=== PATIENT | female | born 1970 | race Caucasian/White ===

== ENCOUNTER 2019-03-27 08:46 | Day surgery (SDC) | payer BC ==
[~2019-03-27 08:46] MED LIST: Lactated Ringers 1,000 ML IV SCH; Lidocaine 1%/Sod Bicarbonate in NS 8.4% 1 ML Syringe IDERM PRN; Sodium Chloride 0.9% 10 ML Syringe FLUSH PRN
[2019-03-27] MEDS ORDERED: Lactated Ringers 1,000 ML ONE ×2 (10:00→12:09)
[2019-03-27] MEDS ORDERED: Ketorolac 30 MG/ML SDV ONE (10:00)
[2019-03-27] MEDS ORDERED: ceFAZolin 1 GM Vial ONE (10:00)
[2019-03-27] MEDS ORDERED: Ondansetron 4 MG/2 ML SDV ONE (10:00)
[2019-03-27] MEDS ORDERED: Dexamethasone 4 MG/ML SDV ONE (10:00)
[2019-03-27] MEDS ORDERED: Propofol 200 MG/20 ML SDV ONE (10:01)
[2019-03-27] MEDS ORDERED: Lidocaine 1% 4 ML ONE (10:01)
[2019-03-27] MEDS ORDERED: Midazolam 1 MG/ML 2 ML SDV ONE (10:01)
[2019-03-27] MEDS ORDERED: fentaNYL 100 MCG/2 ML SDV ONE (10:01)
[2019-03-27] MEDS ORDERED: Famotidine 20 MG/2 ML SDV ONE (10:25)
[2019-03-27] MEDS ORDERED: Ibuprofen 600 MG Tab PO PRN (11:45)
[2019-03-27] MEDS ORDERED: Ondansetron 4 MG/2 ML SDV IVPUSH PRN (11:45)
--- NOTE | 2019-03-27 11:51 | PCM.OPNOTE ---
- General Post-Op/Procedure Note Date of Surgery/Procedure: 03/27/19 Operative Procedure(s): Hysteroscopy, D&C, removal of endometrial polyps Findings: Patient noted to have a polyp which was pedunculated and coming off the right side of the uterus. Posteriorly to the left of midline in the fundal area of the uterus there was another protuberance most probably consistent with small uterine fibroid. It was broad-based. Uterus sounded to 9.5 cm. No adnexal abnormalities were noted on bimanual exam. Pre Op Diagnosis: 1. Postmenopausal uterine bleeding Post-Op Diagnosis: Same with uterine polyps and probable uterine fibroid Anesthesia Technique: General LMA Primary Surgeon: Nathanael Dwyer Pathology: Endometrial curettings including uterine endometrial polyp Fluid Replacement, Intraop: 1,500 EBL in mLs: 5 Complications: None Condition: Good Free Text/Narrative:: Surgery duration: 10 minutes Procedure: The patient is taking the operative placed in a supine position on the operating table. She received 2 g of Ancef preoperatively for infection prophylaxis and had sequential compression stockings in place for DVT prophylaxis. Patient was given general anesthesia with LMA placed for ventilation. She is placed in a dorsal lithotomy position and prepped and draped in usual fashion. An exam under anesthesia was performed. Findings as described above. A weighted speculum was placed in the vagina. Cervix is visualized. It was grasped anteriorly with a single-tooth tenaculum. Uterus was then sounded to a depth of 9-1/2 cm. The cervix was dilated to entrance of a 5 mm 30 rigid hysteroscope. This was placed without problem and normal saline was used as a distending medium. Tendometriality was visualized. Findings as described above.Notably a right uterine sidewall polyp and a posterior left-sided protuberance most probably consistent with a submucosal fibroid. Decision was made to proceed with polypectomy. Polyp forceps was introduced and polyps were removed. After this is performed a D&C was performed. Moderate amount tissue was obtained. Minimal bleeding was encountered. Hysteroscope was then placed back into the endometrial cavity. Blood was flushed out and the findings were consistent relatively normal-appearing endometrial cavity. the posterior wall uterine fibroid. Structure was not removed broad-based. At this point the scope was removed. The vagina was cleared of old blood, the cervix was released and the weighted speculum was removed. Patient was returned to supine position and awakened from general anesthesia. She tolerated the procedure well and operating room in good condition.
--- NOTE | 2019-03-27 11:55 | PCM.POSTAN ---
POST ANESTHESIA ASSESSMENT - MENTAL STATUS Mental Status: Alert, Oriented - VITAL SIGNS Pulse Rate: 80 SaO2: 96 Resp Rate: 14 Blood Pressure: 126/75 Temperature: 36.7 C - RESPIRATORY Respiratory Status: Respiratory Rate WNL, Airway Patent, O2 Saturation Stable, Supplemental Oxygen - CARDIOVASCULAR CV Status: Pulse Rate WNL, Blood Pressure Stable - GASTROINTESTINAL GI Status: No Symptoms - PAIN Pain Score: 0 - POST OP HYDRATION Hydration Status: Adequate & Stable
--- NOTE | 2019-03-27 12:01 | PCM.PREANE ---
Preanesthetic Assessment - Anesthesia/Transfusion/Family Hx Anesthesia History: No Prior Anesthesia Family History of Anesthesia Reaction: No - Review of Systems General: No Symptoms Pulmonary: No Symptoms Cardiovascular: No Symptoms Gastrointestinal: Other (GERD on Zantac) Neurological: Headache (Migraines), Pre-Existing Deficit (Back pain, seeing chropractic care, numbness and tingling in hands right more than left side. ) Other: Reports: None (Obesity BMI 38) - Physical Assessment NPO Status Date: 03/26/19 NPO Status Time: 23:00 Pulse: 80 O2 Sat by Pulse Oximetry: 96 Respiratory Rate: 14 Blood Pressure: 126/75 Temperature: 36.7 C Vital Signs: Last Vital Signs Temp 36.7 C 03/27/19 11:55 Pulse 80 03/27/19 11:55 Resp 14 03/27/19 11:55 BP 126/75 03/27/19 11:55 Pulse Ox 96 03/27/19 11:55 Height: 1.68 m Weight: 108.409 kg ASA Class: 2 Mental Status: Alert & Oriented x3 Airway Class: Mallampati = 2 Dentition: Reports: Normal Dentition Thyro-Mental Finger Breadths: 2 Mouth Opening Finger Breadths: 3 ROM/Head Extension: Full Lungs: Clear to Auscultation, Normal Respiratory Effort Cardiovascular: Regular Rate, Regular Rhythm - Lab Values: Laboratory Last Values WBC 6.75 K/mm3 (3.98-10.04) 03/26/19 16:00 RBC 4.93 M/mm3 (3.98-5.22) 03/26/19 16:00 Hgb 13.1 gm/L (11.2-15.7) 03/26/19 16:00 Hct 40.8 % (34.1-44.9) 03/26/19 16:00 MCV 82.8 fl (79.4-94.8) 03/26/19 16:00 MCH 26.6 pg (25.6-32.2) 03/26/19 16:00 MCHC 32.1 g/dl (32.2-35.5) L 03/26/19 16:00 RDW Std Deviation 42.0 fL (36.4-46.3) 03/26/19 16:00 Plt Count 232 K/mm3 (182-369) 03/26/19 16:00 MPV 10.8 fl (9.4-12.3) 03/26/19 16:00 Neut % (Auto) 48.5 % (34.0-71.1) 03/26/19 16:00 Lymph % (Auto) 36.7 % (19.3-51.7) 03/26/19 16:00 Kay % (Auto) 9.9 % (4.7-12.5) 03/26/19 16:00 Eos % (Auto) 3.7 (0.7-5.8) 03/26/19 16:00 Baso % (Auto) 0.9 % (0.1-1.2) 03/26/19 16:00 Neut # (Auto) 3.27 K/mm3 (1.56-6.13) 03/26/19 16:00 Lymph # (Auto) 2.48 K/mm3 (1.18-3.74) 03/26/19 16:00 Kay # (Auto) 0.67 K/mm3 (0.24-0.36) H 03/26/19 16:00 Eos # (Auto) 0.25 K/mm3 (0.04-0.36) 03/26/19 16:00 Baso # (Auto) 0.06 K/mm3 (0.01-0.08) 03/26/19 16:00 Urine Color Yellow (Yellow) 03/26/19 16:00 Urine Appearance Clear (Clear) 03/26/19 16:00 Urine pH 6.0 (5.0-8.0) 03/26/19 16:00 Ur Specific [place] > or = 1.030 (1.005-1.030) 03/26/19 16:00 Urine Protein Negative (Negative) 03/26/19 16:00 Urine Glucose (UA) Negative (Negative) 03/26/19 16:00 Urine Ketones Negative (Negative) 03/26/19 16:00 Urine Occult Blood Negative (Negative) 03/26/19 16:00 Urine Nitrite Negative (Negative) 03/26/19 16:00 Urine Bilirubin Negative (Negative) 03/26/19 16:00 Urine Urobilinogen 0.2 (0.2-1.0) 03/26/19 16:00 Ur Leukocyte Esterase Negative (Negative) 03/26/19 16:00 Urine HCG, Qual Negative (NEGATIVE) 03/26/19 16:00 - Allergies Allergies/Adverse Reactions: Allergies Allergy/AdvReac Type Severity Reaction Status Date / Time animal dander Allergy Other Verified 03/26/19 14:40 Penicillins Allergy Cannot Verified 03/26/19 14:40 Remember dust mites Allergy Other Uncoded 03/26/19 14:40 pollen Allergy Other Uncoded 03/26/19 14:40 - Anesthesia Plan Pre-Op Medication Ordered: Anxiolytic - Acknowledgements Anesthesia Type Planned: General Anesthesia Pt an Appropriate Candidate for the Planned Anesthesia: Yes Alternatives and Risks of Anesthesia Discussed w Pt/Guardian: Yes Pt/Guardian Understands and Agrees with Anesthesia Plan: Yes PreAnesthesia Questionnaire HEENT History: Reports: Allergic Rhinitis Cardiovascular History: Reports: None Respiratory History: Reports: None Gastrointestinal History: Reports: None Genitourinary History: Reports: None 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 (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) Other OB/BYN History: Irregular menstrual bleeding, menorrhagia, Musculoskeletal History: Reports: None Neurological History: Reports: Migraines Psychiatric History: Reports: None Endocrine/Metabolic History: Reports: None Hematologic History: Reports: None Immunologic History: Reports: None Oncologic (Cancer) History: Reports: None Dermatologic History: Reports: None - Past Surgical History Head Surgeries/Procedures: Reports: None HEENT Surgical History: Reports: None Cardiovascular Surgical History: Reports: None Respiratory Surgical History: Reports: None GI Surgical History: Reports: None Female Surgical History: Reports: None Endocrine Surgical History: Reports: None Neurological Surgical History: Reports: None Musculoskeletal Surgical History: Reports: None Oncologic Surgical History: Reports: None Dermatological Surgical History: Reports: None - SUBSTANCE USE Smoking Status *Q: Never Smoker Second Hand Smoke Exposure: No Recreational Drug Use History: No - HOME MEDS Home Medications: Home Meds Calcium Carbonate [Calcium] 500 mg PO DAILY 03/26/19 [History] Cetirizine [ZyrTEC] 10 mg PO DAILY 03/26/19 [History] L.acidoph,Paracasei, B.lactis [Probiotic] 1 cap PO DAILY 03/26/19 [History] Montelukast Sodium [Singulair] 10 mg PO DAILY PRN 03/26/19 [History] [place]-3/DHA/Epa/Fish Oil [[place]-3 Fish Oil 1,000 MG Sfgl] 1,000 mg PO DAILY 05/09 [History] Ranitidine [Zantac] 150 mg PO DAILY 03/26/19 [History] SUMAtriptan [Imitrex] 50 mg PO ASDIRECTED PRN 03/26/19 [History] Ibuprofen [Motrin] 600 mg PO Q4H PRN tablet 03/27/19 [Rx] - CURRENT (IN HOUSE) MEDS Current Meds: Current Medications Lactated Ringer's (Ringers, Lactated) 1,000 mls @ 125 mls/hr IV ASDIRECTED HENRY Stop: 03/27/19 23:00 Last Admin: 03/27/19 09:15 Dose: 125 mls/hr Ibuprofen (Motrin) 600 mg PO Q4H PRN PRN Reason: Mild pain or fever Stop: 03/27/19 18:00 Lidocaine/Sodium Bicarbonate (Buffered Lidocaine 1% In Ns 8.4%) 0.25 ml IDERM ONETIME PRN PRN Reason: Prior to IV Start Stop: 03/27/19 18:00 Last Admin: 03/27/19 09:15 Dose: 0.25 ml Ondansetron HCl (Zofran) 4 mg IVPUSH Q4H PRN PRN Reason: Nausea Stop: 03/27/19 18:00 Sodium Chloride (Saline Flush) 10 ml FLUSH ASDIRECTED PRN PRN Reason: Keep Vein Open Stop: 03/27/19 18:00 Discontinued Medications Cefazolin Sodium (Ancef) Confirm Administered Dose 2 gm .ROUTE .STK-MED ONE Stop: 03/27/19 10:01 Dexamethasone (Dexamethasone) Confirm Administered Dose 4 mg .ROUTE .STK-MED ONE Stop: 03/27/19 10:01 Famotidine (Pepcid) Confirm Administered Dose 20 mg .ROUTE .STK-MED ONE Stop: 03/27/19 10:26 Fentanyl (Sublimaze) Confirm Administered Dose 100 mcg .ROUTE .STK-MED ONE Stop: 03/27/19 10:02 Lactated Ringer's (Ringers, Lactated) Confirm Administered Dose 1,000 mls @ as directed .ROUTE .STK-MED ONE Stop: 03/27/19 10:01 Lidocaine HCl (Xylocaine-Mpf 1%) Confirm Administered Dose 4 mls @ as directed .ROUTE .STK-MED ONE Stop: 03/27/19 10:02 Ketorolac Tromethamine (Toradol) Confirm Administered Dose 30 mg .ROUTE .[facility]- MED ONE Stop: 03/27/19 10:01 Midazolam HCl (Versed 1 Mg/Ml) Confirm Administered Dose 2 mg .ROUTE .[facility]-MED ONE Stop: 03/27/19 10:02 Ondansetron HCl (Zofran) Confirm Administered Dose 4 mg .ROUTE .[facility]-MED ONE Stop: 03/27/19 10:01 Propofol (Diprivan 20 Ml) Confirm Administered Dose 400 mg .ROUTE .ST-MED ONE Stop: 03/27/19 10:02
--- NOTE | 2019-03-27 13:13 | PCM48HPAN ---
Post Anesthesia Note - EVALUATION WITHIN 48HRS OF ANESTHETIC Vital Signs in Normal Range: Yes Patient Participated in Evaluation: Yes Respiratory Function Stable: Yes Airway Patent: Yes Cardiovascular Function Stable: Yes Hydration Status Stable: Yes Pain Control Satisfactory: Yes Nausea and Vomiting Control Satisfactory: Yes Mental Status Recovered: Yes
== END 2019-03-27 13:37 | disposition home or self-care (01) ==
LOC: JD.SDS 08:46
PROVIDERS: ATTEND Obstetrics & Gynecology
DX: N84.0 Polyp of corpus uteri (principal); N95.0 Postmenopausal bleeding; Z88.0 Allergy status to penicillin; Z91.048 Other nonmedicinal substance allergy status; Z01.818 Encounter for other preprocedural examination
CPT/HCPCS: 36415; 58558; 81003; 81025; 85025; J0690; J1100; J1885; J2001; J2250; J2405; J2704; J3010; J3490; J7120; 00952

== ENCOUNTER 2019-05-08 07:54 | Day surgery (SDC) | payer BC ==
[2019-05-08] MEDS ORDERED: Scopolamine 1.5 MG Transdermal Patch TOP ONE (08:36)
--- NOTE | 2019-05-08 08:51 | PCM.PREANE ---
Preanesthetic Assessment - Anesthesia/Transfusion/Family Hx Anesthesia History: Prior Anesthesia Without Reaction Family History of Anesthesia Reaction: No Intubation History: Unknown (LMA insertion documented with ease.) - Review of Systems General: Other (Allergic Rhinitis, nose completely "stuffed up" today. ) Pulmonary: No Symptoms Cardiovascular: No Symptoms Gastrointestinal: Other (GERD controlled with Zantac.) Neurological: Headache (Migraines), Pre-Existing Deficit (Numbness to hands Right greater than Left. Chonic back pain seeking patient care provider. ) Other: Reports: None (Obesity BMI 38. ) - Physical Assessment NPO Status Date: 05/07/19 NPO Status Time: 23:30 O2 Sat by Pulse Oximetry: 97 Respiratory Rate: 16 Vital Signs: Last Vital Signs Temp 36.3 C 05/08/19 08:05 Pulse 71 05/08/19 08:05 Resp 16 05/08/19 08:05 BP 146/75 H 05/08/19 08:05 Pulse Ox 97 05/08/19 08:05 Height: 1.68 m Weight: 108.862 kg ASA Class: 2 Mental Status: Alert & Oriented x3 Airway Class: Mallampati = 3 Dentition: Reports: Normal Dentition Thyro-Mental Finger Breadths: 1 Mouth Opening Finger Breadths: 3 ROM/Head Extension: Full Lungs: Clear to Auscultation, Normal Respiratory Effort Cardiovascular: Regular Rate, Regular Rhythm - Lab Values: Laboratory Last Values WBC 7.54 K/mm3 (3.98-10.04) 05/03/19 10:09 RBC 5.08 M/mm3 (3.98-5.22) 05/03/19 10:09 Hgb 13.6 gm/L (11.2-15.7) 05/03/19 10:09 Hct 42.0 % (34.1-44.9) 05/03/19 10:09 MCV 82.7 fl (79.4-94.8) 05/03/19 10:09 MCH 26.8 pg (25.6-32.2) 05/03/19 10:09 MCHC 32.4 g/dl (32.2-35.5) 05/03/19 10:09 RDW Std Deviation 43.8 fL (36.4-46.3) 05/03/19 10:09 Plt Count 243 K/mm3 (182-369) 05/03/19 10:09 MPV 11.1 fl (9.4-12.3) 05/03/19 10:09 Neut % (Auto) 53.4 % (34.0-71.1) 05/03/19 10:09 Lymph % (Auto) 33.2 % (19.3-51.7) 05/03/19 10:09 [place] % (Auto) 8.9 % (4.7-12.5) 05/03/19 10:09 Eos % (Auto) 3.2 (0.7-5.8) 05/03/19 10:09 Baso % (Auto) 0.8 % (0.1-1.2) 05/03/19 10:09 Neut # (Auto) 4.03 K/mm3 (1.56-6.13) 05/03/19 10:09 Lymph # (Auto) 2.50 K/mm3 (1.18-3.74) 05/03/19 10:09 [place] # (Auto) 0.67 K/mm3 (0.24-0.36) H 05/03/19 10:09 Eos # (Auto) 0.24 K/mm3 (0.04-0.36) 05/03/19 10:09 Baso # (Auto) 0.06 K/mm3 (0.01-0.08) 05/03/19 10:09 Creatinine 0.8 mg/dL (0.55-1.02) 05/03/19 10:09 Est Cr Clr Drug Dosing TNP 05/03/19 10:09 Estimated GFR (MDRD) > 60 mL/min (>60) 05/03/19 10:09 Urine Color Yellow (Yellow) 05/03/19 10:09 Urine Appearance Clear (Clear) 05/03/19 10:09 Urine pH 6.0 (5.0-8.0) 05/03/19 10:09 Ur Specific [place] 1.015 (1.005-1.030) 05/03/19 10:09 Urine Protein Negative (Negative) 05/03/19 10:09 Urine Glucose (UA) Negative (Negative) 05/03/19 10:09 Urine Ketones Negative (Negative) 05/03/19 10:09 Urine Occult Blood Negative (Negative) 05/03/19 10:09 Urine Nitrite Negative (Negative) 05/03/19 10:09 Urine Bilirubin Negative (Negative) 05/03/19 10:09 Urine Urobilinogen 0.2 (0.2-1.0) 05/03/19 10:09 Ur Leukocyte Esterase Negative (Negative) 05/03/19 10:09 Urine HCG, Qual Negative (NEGATIVE) 05/03/19 10:09 - Imaging/EKG Impressions: EKG with Right BBB at 69 bmp. - Allergies Allergies/Adverse Reactions: Allergies Allergy/AdvReac Type Severity Reaction Status Date / Time animal dander Allergy Other Verified 05/07/19 13:28 Penicillins Allergy Cannot Verified 05/07/19 13:28 Remember dust mites Allergy Other Uncoded 05/07/19 13:28 pollen Allergy Other Uncoded 05/07/19 13:28 - Anesthesia Plan Pre-Op Medication Ordered: Anxiolytic (Offered and deferred per patient. 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) Other OB/BYN History: Irregular menstrual bleeding, menorrhagia, , post menopausal bleeding, hyperplasia with atypia, hyteroscopy, edometrial polyps Musculoskeletal History: Reports: None Neurological History: Reports: Migraines Psychiatric History: Reports: None Endocrine/Metabolic History: Reports: None Hematologic History: Reports: None Immunologic History: Reports: None Oncologic (Cancer) History: Reports: None Dermatologic History: Reports: None - Past Surgical History Head Surgeries/Procedures: Reports: None HEENT Surgical History: Reports: None Cardiovascular Surgical History: Reports: None Respiratory Surgical History: Reports: None GI Surgical History: Reports: None Female Surgical History: Reports: None, D&C Endocrine Surgical History: Reports: None Neurological Surgical History: Reports: None Musculoskeletal Surgical History: Reports: None Oncologic Surgical History: Reports: None Dermatological Surgical History: Reports: None - SUBSTANCE USE Smoking Status *Q: Never Smoker Recreational Drug Use History: No - HOME MEDS Home Medications: Home Meds RX: Calcium Carbonate [Calcium] 500 mg PO DAILY 03/26/19 [History] RX: Cetirizine [ZyrTEC] 10 mg PO DAILY 03/26/19 [History] RX: L.acidoph,Paracasei, B.lactis [Probiotic] 1 cap PO DAILY 03/26/19 [History] RX: Montelukast Sodium [Singulair] 10 mg PO DAILY PRN 03/26/19 [History] RX: [place]-3/DHA/Epa/Fish Oil [[place]-3 Fish Oil 1,000 MG Sfgl] 1,000 mg PO DAILY 03/26/19 [History] RX: Ranitidine [Zantac] 150 mg PO DAILY 03/26/19 [History] RX: SUMAtriptan [Imitrex] 50 mg PO ASDIRECTED PRN 03/26/19 [History] - CURRENT (IN HOUSE) MEDS Current Meds: Current Medications Lactated Ringer's (Ringers, Lactated) 1,000 mls @ 125 mls/hr IV ASDIRECTED HENRY Stop: 05/08/19 23:00 Last Admin: 05/08/19 08:20 Dose: 125 mls/hr Lidocaine/Sodium Bicarbonate (Buffered Lidocaine 1% In Ns 8.4%) 0.25 ml IDERM ONETIME PRN PRN Reason: Prior to IV Start Stop: 05/08/19 18:00 Scopolamine (Transderm-Scop) 1.5 mg TOP ONETIME ONE Stop: 05/08/19 08:37 Sodium Chloride (Saline Flush) 10 ml FLUSH ASDIRECTED PRN PRN Reason: Keep Vein Open Stop: 05/08/19 18:00 Discontinued Medications Bupivacaine HCl (Marcaine 0.5%) Confirm Administered Dose 30 ml .ROUTE .STK-MED ONE Stop: 05/08/19 08:35 Lidocaine/Epinephrine (Xylocaine 1% With Epinephrine 1:100,000) Confirm Administered Dose 20 ml .ROUTE .STK-MED ONE Stop: 05/08/19 08:34 Sodium Chloride (Normal Saline) Confirm Administered Dose 50 ml .ROUTE .STK-MED ONE Stop: 05/08/19 08:35
[2019-05-08] MEDS ORDERED: Midazolam 1 MG/ML 2 ML SDV ONE (09:01)
[2019-05-08] MEDS ORDERED: ceFAZolin 1 GM Vial ONE (09:01)
[2019-05-08] MEDS ORDERED: Lactated Ringers 1,000 ML ONE ×2 (09:01→10:00)
[2019-05-08] MEDS ORDERED: Ondansetron 4 MG/2 ML SDV ONE (09:01)
[2019-05-08] MEDS ORDERED: fentaNYL 250 MCG/5 ML SDV ONE (09:01)
[2019-05-08] MEDS ORDERED: Rocuronium 50 MG/5 ML Vial ONE (09:01)
[2019-05-08] MEDS ORDERED: Propofol 200 MG/20 ML SDV ONE (09:01)
[2019-05-08] MEDS ORDERED: Lidocaine 1% 4 ML ONE (09:01)
[2019-05-08] MEDS ORDERED: Dexamethasone 4 MG/ML 5 ML MDV ONE (09:02)
[2019-05-08] MEDS ORDERED: Ketorolac 30 MG/ML SDV ONE (09:02)
[2019-05-08] MEDS ORDERED: Famotidine 20 MG/2 ML SDV ONE (09:08)
[2019-05-08] MEDS ORDERED: ePHEDrine/Normal Saline 25 MG/5 ML Syringe ONE (09:35)
[2019-05-08] MEDS: Bupivacaine 0.5% 30 ML SDV ONE ×2 (09:45→09:57)
[2019-05-08] MEDS ORDERED: Phenylephrine/Normal Saline 100 MCG/ML 10 ML Syringe ONE (09:48)
[2019-05-08] MEDS ORDERED: Ketamine 500 mg/10 ML MDV ONE (09:54)
[2019-05-08] MEDS: Sodium Chloride 0.9% 50 ML SDV ONE ×2 (09:58→10:10)
[2019-05-08] MEDS: Lidocaine 1% with EPINEPHrine 1:100,000 20 ML MDV ONE ×2 (09:58→10:10)
[2019-05-08] MEDS ORDERED: fentaNYL 100 MCG/2 ML SDV IVPUSH PRN (10:13)
[2019-05-08] MEDS ORDERED: diphenhydrAMINE 50 MG/ML SDV IVPUSH PRN (10:13)
[2019-05-08] MEDS ORDERED: HYDROmorphone 0.5 MG/0.5 ML Syringe IVPUSH PRN (10:13)
[2019-05-08] MEDS ORDERED: ePHEDrine 50 MG/ML SDV IVPUSH PRN (10:13)
[2019-05-08] MEDS ORDERED: Haloperidol Lactate 5 MG/ML SDV IVPUSH ONE (10:13)
[2019-05-08] MEDS ORDERED: Acetaminophen/oxyCODONE 325-5 MG Tab PO PRN (11:05)
[2019-05-08] MEDS ORDERED: Ondansetron 4 MG/2 ML SDV IVPUSH PRN (11:05)
--- NOTE | 2019-05-08 11:10 | PCM.POSTAN ---
POST ANESTHESIA ASSESSMENT - MENTAL STATUS Mental Status: Alert (Drowsy) - VITAL SIGNS Pulse Rate: 91 SaO2: 97 Resp Rate: 15 Blood Pressure: 128/62 Temperature: 37.2 C - RESPIRATORY Respiratory Status: Respiratory Rate WNL, Airway Patent, O2 Saturation Stable, Supplemental Oxygen - CARDIOVASCULAR CV Status: Pulse Rate WNL, Blood Pressure Stable - GASTROINTESTINAL GI Status: No Symptoms - PAIN Pain Score: 0 - POST OP HYDRATION Hydration Status: Adequate & Stable
--- NOTE | 2019-05-08 11:13 | PCM.OPNOTE ---
- General Post-Op/Procedure Note Date of Surgery/Procedure: 05/08/19 Operative Procedure(s): Laparoscopically assisted vaginal hysterectomy with bilateral salpingo-oophorectomy Findings: Uterus is mildly enlarged. Ovaries and fallopian tubes appeared normal. Pre Op Diagnosis: 1. Complex endometrial hyperplasia with atypia. 2. Postmenopausal uterine bleeding Post-Op Diagnosis: Same Anesthesia Technique: General ET Tube Other Anesthesia Type: Lidocaine quarter percent with [id number] mL total Primary Surgeon: Nathanael Dwyer Secondary Surgeon: Suraj Aguirre Anesthesia Provider: Anjana Palumbo Sap Bw Consultant: Jocelyn Arcos Reason Sap Bw Consultant Was Necessary: Assistance, retraction, patient safety, quality of care Pathology: Uterus, bilateral tubes and ovaries Fluid Replacement, Intraop: 2,500 Output, Urine Amount: 400 EBL in mLs: 250 Drain/Tube Comments:: Indwelling bladder catheter during surgery only. Complications: None Condition: Good Free Text/Narrative:: Surgery duration: 62 minutes The patient was taken to the operating room placed in supine position on the operating table. She received 2 g of Ancef preoperatively for infection prophylaxis. She had signed consent previously. After adequate anesthesia patient was placed in a dorsal lithotomy position. It should be noted she had sequential compression stockings in place for DVT prophylaxis. A uterine manipulator was placed as was an latex free indwelling bladder catheter. This was done after adequate prepping and draping. The patient was placed in supine position and 3 laparoscopic port sites were developed. Marcaine 0.5% approximately 3-5 mL was injected at each site. Verres needle was placed and pneumoperitoneum was achieved with 3 L of CO2. Infraumbilical and 2 lateral port sites were developed. Appendix was visualized and found to be flaccid and noninflamed. Anterior and posterior cul-de-sacs were clear. Uterus was enlarged somewhat. Under laparoscopic guidance the upper portion of the hysterectomy was performed. The right infundibulopelvic ligament was elevated and crossclamped using the endoseal computerized cautery device. The round ligament was taken down to the broad ligament. At this time attention was turned to the left side and the left infundibulopelvic ligament and the triple ligament were then taken down in a similar fashion. Broad ligament was taken down to the area of the uterine vasculature. Uterine vasculature was developed in the usual fashion using the cautery system. Both uterine arteries were identified and developed. Vaginal approach was then undertaken. The patient was placed in the dorsal lithotomy position and a weighted speculum was placed in the vagina. The cervix was injected with lidocaine quarter percent with epinephrine 20 mL total. A full circumference incision was made through the epithelium around the cervix. Posterior cul-de-sac was entered without problems. The left uterosacral ligament and then the right uterosacral were taken down using the Enseal vessel closure system. The cardinal ligament and what remained of the uterine vascular vessels and cervical branches of the vessels were managed with the Enseal vessel closure system on each side. Anterior cul-de-sac was then entered and the remaining portion of broad ligament on the right side and a small portion of broad ligament remaining on the left side were then developed in the usual fashion. Uterus was then removed. At this point the uterus was completely removed and sent as specimen. The vaginal cuff was then run with a locked running suture of 0 Monocryl from the 2 o'clock position to the 10 o'clock position. The vagina was closed with a running locked suture of 0 Monocryl. Hemostasis was confirmed this time and no bleeding was noted. Laparoscopy was then performed to ensure hemostasis. Pneumoperitoneum was reestablished and the laparoscope was placed. The pelvis was found to be hemostatically intact. There was no evidence of any bowel adhesion to the vaginal cuff area noted. The sleeves were removed under direct visualization and the upper sleeve was removed after reversal of the pneumoperitoneum. Each of these sites were closed with a single interrupted suture of 3-0 Monocryl. They were further approximated with Dermabond skin glue. At this point the patient was awakened from general endotracheal anesthesia. The Lopez catheter had been removed by this time. She is discharged from the operating room in good condition.
[2019-05-08] MEDS ORDERED: Ketorolac 30 MG/ML SDV IVPUSH SCH (11:15)
[2019-05-08] MEDS ORDERED: Albuterol 0.083% 2.5 MG/3 ML Neb Soln NEB ONE (12:22)
== END 2019-05-08 14:52 | disposition home or self-care (01) ==
LOC: JD.SDS 07:54
PROVIDERS: ATTEND Obstetrics & Gynecology
DX: N87.9 Dysplasia of cervix uteri, unspecified (principal); D25.9 Leiomyoma of uterus, unspecified; N80.0 Endometriosis of uterus; N73.6 Female pelvic peritoneal adhesions (postinfective); N80.1 Endometriosis of ovary; N83.11 Corpus luteum cyst of right ovary; N95.0 Postmenopausal bleeding; J30.9 Allergic rhinitis, unspecified; G43.909 Migraine, unspecified, not intractable, without status migrainosus; Z79.899 Other long term (current) drug therapy; Z88.0 Allergy status to penicillin; Z91.048 Other nonmedicinal substance allergy status
CPT/HCPCS: 36415; 58552; 81003; 81025; 82565; 85025; 86850; 86900; 86901; 93005; 94640; A9270; J0690; J1100; J1885; J2001; J2250; J2370; J2405; J2704; J3010; J3490; J7050; J7120; 00944